=== PATIENT | female | born 1980 | race American Indian/Alaskan Native ===

== ENCOUNTER 2016-11-17 07:45 | Day surgery (SDC) | payer OTHER ==
[2016-11-17] MEDS ORDERED: DIPRIVAN 10 MG/ML IV ONE ×4 (07:54→11:36)
--- NOTE | 2016-11-17 08:38 | Anesthesia Day of Surgery ---
Anesthesia Day of Surgery - Day of Surgery Patient Examined: Yes Patient H&P Reviewed: Yes Patient is NPO: Yes
--- NOTE | 2016-11-17 08:41 | Anesthesia Consultation ---
Anesthesia Consult and Med Hx Date of service: 11/17/16 - Airway Anesthetic Teeth Evaluation: Good ROM Head & Neck: Adequate Mental/Hyoid Distance: Adequate Mallampati Class: Class II Intubation Access Assessment: Probably Good - Pulmonary Exam CTA: Yes - Cardiac Exam Cardiac Exam: RRR - Pre-Operative Health Status ASA Pre-Surgery Classification: ASA3 Proposed Anesthetic Plan: MAC - Pulmonary Hx Smoking: No Hx Respiratory Symptoms: No (Hx of isolated pulmonary embolus due to inactivity from foot surgery) Hx Sleep Apnea: Yes (not on CPAP) - Cardiovascular System Hx Hypertension: No - Central Nervous System Hx Seizures: No CVA: No - Gastrointestinal Hx Gastroesophageal Reflux Disease: Yes - Endocrine Hx Renal Disease: No Hx Liver Disease: No Hx Non-Insulin Dependent Diabetes: No - Hematic Hx Anemia: Yes Hx Sickle Cell Disease: No - Other Systems Hx Obesity: Yes (BMI 49.8) - Additional Comments Anesthesia Medical History Comments: NAC
[2016-11-17] MEDS ORDERED: NACL 0.9% 1000 ML 1,000 ML IV SCH (09:00)
[2016-11-17 10:06] VITALS: BP 107/74
--- NOTE | 2016-11-17 11:21 | Operative Report ---
SURGEON: Trino Wang MD. CHANNEL SALES DIRECTOR: Paul Weber MD PREOPERATIVE DIAGNOSIS: Dyspepsia. POSTOPERATIVE DIAGNOSIS: Dyspepsia. PROCEDURE PERFORMED: Esophagogastroduodenoscopy. INDICATIONS: The patient is a 36-year-old female that has been worked up for bariatric surgery. She has complaints of dyspepsia and after discussing risks and benefits of the procedure, she decided to consent for it. DESCRIPTION OF PROCEDURE: The patient was brought to the endoscopic suite, was placed on a stretcher in the left lateral position. MAC anesthesia was given by the anesthesia team. Timeout was called, the patient and procedure were correct. So, I proceeded to insert the endoscope into the oropharynx, down to the esophagus, stomach and duodenum and then slowly retrieved it. The mucosa was examined circumferentially. No gross pathology was visualized in the duodenum or stomach. Then, we proceeded to retroflex the scope to assess the fundal mucosa and no growth anomaly was visualized and no obvious hiatal hernia was seen. Then, we deflated the stomach and retrieved the endoscope into the esophagus and oropharynx. The patient tolerated very well the procedure and was sent to post-endoscopy recovery room. JOB# [id number] DANA/ANSHUL JOSEPH
--- NOTE | 2016-11-17 11:52 | Post Anesthesia Evaluation ---
- Post Anesthesia Evaluation Patient Participated: Yes Airway Patent: Yes Stable Respiratory Function: Yes Temp > 96.8F: Yes Pain Manageable: Yes Adequeate Hydration: Yes Anesthesia Complications: No Block Receding Appropriately: Not Applicable
== END 2016-11-17 07:46 | disposition home or self-care (01) ==
LOC: GIO 07:45
PROVIDERS: ATTEND Specialist
DX: K30 Functional dyspepsia (principal); K21.9 Gastro-esophageal reflux disease without esophagitis; D64.9 Anemia, unspecified; G47.33 Obstructive sleep apnea (adult) (pediatric); E66.9 Obesity, unspecified; Z68.42 Body mass index [BMI] 45.0-49.9, adult; Z86.711 Personal history of pulmonary embolism; Z86.73 Personal history of transient ischemic attack (TIA), and cerebral infarction without residual deficits; Z98.890 Other specified postprocedural states; Z82.49 Family history of ischemic heart disease and other diseases of the circulatory system
CPT/HCPCS: 43235; 81025; J2704; J7030

== ENCOUNTER 2016-12-01 06:19 | Inpatient (IN) | payer OTHER ==
--- NOTE | 2016-11-27 12:05 | Anesthesia Consultation ---
Anesthesia Consult and Med Hx Date of service: 11/27/16 - Airway Anesthetic Teeth Evaluation: Good ROM Head & Neck: Adequate Mental/Hyoid Distance: Adequate Mallampati Class: Class II Intubation Access Assessment: Probably Good - Pulmonary Exam CTA: Yes - Cardiac Exam Cardiac Exam: RRR - Pre-Operative Health Status ASA Pre-Surgery Classification: ASA3 Proposed Anesthetic Plan: General - Pulmonary Hx Smoking: No Hx Asthma: No Hx Respiratory Symptoms: No (Hx of PE on 2005 due to LE DVT. It was an isolated event) Hx Sleep Apnea: Yes - Cardiovascular System Hx Hypertension: No Hx Coronary Artery Disease: No Hx Heart Attack/AMI: No - Central Nervous System Hx Seizures: No CVA: No Hx Back Pain: Yes - Endocrine Hx Renal Disease: No Hx Liver Disease: No Hx Non-Insulin Dependent Diabetes: No Hx Hypothyroidism: Yes (on synthroid) - Hematic Hx Anemia: Yes Hx Sickle Cell Disease: No - Other Systems Hx Cancer: No Hx Obesity: Yes - Additional Comments Anesthesia Medical History Comments: NAC
--- NOTE | 2016-11-30 15:55 | Admit Criteria Form ---
Admission Criteria Documentation: AMBULATORY SURGERY EXCEPTION CRITERIA Ambulatory Surgery Exception Criteria ( Place 'X' for any and all applicable criteria): Surgery or procedure performed on ambulatory basis may require inpatient stay for[A] ANY ONE of the following(1)(2)(3)(4)(5)(6)(7)(8)(9): [X] I. A preoperative situation, condition, or finding that warrants inpatient stay as indicated by ANY ONE of the following: [] a) Inpatient care needed because of severity of a disease or condition rather than the surgery (eg, severe cardiac or respiratory disease, severe infection) (15) (16 ) (17) (18) [] b) Emergent procedure (eg, angioplasty for acute ischemia)(19) [] c) Complex surgical approach or situation as indicated by ANY ONE of the following(3): [] i) Open approach needed instead of usual endoscopic, transcatheter, or other less invasive procedure [] ii) Difficult approach because of previous operation [] iii) Airway monitoring required after open neck procedures(20)(21) [] iv) Large mass requiring unusually extensive dissection [] v) Additional complicating feature requiring inpatient care (eg, drain management)(22(23): [X] d) Major surgery in a pt with high anesthetic risk as indicated by ANY ONE of the following (2)(3)(5)(7)(8): [X] i) ASA risk class III or higher (severe systemic disease impairing function) [D] [] ii) Advanced age (eg, older than 85 years)(14)(24) [] iii) Symptomatic heart failure(25) [] iv) Symptomatic asthma or COPD(8)(21) [X] v) Morbid obesity with hemodynamic or respiratory problems(20)( 21)(26)(27) [] vi) Obstructive sleep apnea(20)(21) [] vii) Former premature infants who are younger than 60 weeks [] viii) High risk for severe postoperative abnormalities (eg, severe postoperative hypocalcemia after parathyroidectomy for severe hyperparathyroidism)(27)( 28) [] ix) Unstable angina(25) [] e) Drug-related risk requiring inpatient stay as indicated by ANY ONE of the following(5)(10)(14)(32)(33) [] i) Procedure requires discontinuing drugs or other therapy (eg , antiarrhythmic medication, antiseizure medication), which necessitates inpatient observation or treatment.(18)(31) [] ii) Major surgery and high risk drug use as indicated by ANY ONE of the following: [] 1) Active abuse of cocaine or similar drug [] 2) Monoamine oxidase inhibitor use [] 3) Other drug identified as posing risk [] f) Inadequate outpatient care situation as indicated by ANY ONE of the following(5)(10)(14)(32)(33) [] i) Patient lives remote from medical facility and procedure has urgent complication potential, and temporary nearby residence cannot be arranged [] ii) Patient will have postprocedure incapacitation and inadequate assistance at home, or alternative level of care cannot be arranged. [] iii) Patient will have long general anesthesia or procedure side effect resolution time, and competent person to stay with patient on first postoperative night at home or alternative level of care cannot be arranged. []iv) Other inadequate outpatient situation that cannot be handled by other means [] II. A perioperative event, condition, or finding that warrants inpatient stay as indicated by ANY ONE of the following (1)(2)(3): [] a) Inadequate physiologic recovery: cardiovascular, respiratory, or hemodynamic status not normal or near preoperative baseline(18) [] b) Hemodynamic instability [] c) Patient not alert with near normal or baseline mental status [] d) Temperature not normal or as expected and not appropriate for outpatient treatment of condition [] e) Ambulatory or appropriate activity level status not yet achieved post procedure [E](34)(35)(36) [] f) Operative site not appropriate (eg, unexpected or excessive drainage or bleeding) [] g) Postoperative effects not resolved or adequately managed (eg, significant pain or vomiting not appropriate for outpatient or next level of care)(10)(12) [] h) Complicating features requiring inpatient care as indicated by ANY ONE of the following(37): [] i) Severe complications of procedure (eg, bowel injury, airway compromise, vascular injury,severe hemorrhage) [] ii) Extensive (eg, dissection far beyond usual scope of procedure ) or prolonged (eg, 120 minutes beyond usual) surgery needed requiring inpatient postoperative care [] iii) Conversion to an open or complex procedure that requires inpatient care (eg, open vs laparoscopic cholecystectomy, abdominal vs vaginal hysterectomy)(38) [] iv) Comorbid condition or test result identified during or post procedure that requires inpatient care (7) [] v) Malignant hyperthermia(30) [] vi) Other complicating feature requiring inpatient care(22)(23) Inpatient stay may be needed until ALL of the following are present (1)(2)(3)(4) (5)(6)(10)(14)(33)(40): []a) Physiologic recovery: cardiovascular, respiratory, and hemodynamic status normal or near preoperative baseline []b) Hemodynamic stability []c) Patient alert, with near normal or baseline mental status []d) Temperature appropriate: patient afebrile or temperature appropriate for outpt treatment of condition []e) Activity level appropriate: ambulatory or appropriate activity level post procedure []f) Operative site appropriate as indicated by ALL of the following: []i) Site dry or with expected drainage []ii) Any blood noted is as expected for procedure. []g) Postoperative effects resolved or managed as indicated by ALL of the following: []i) Pain management appropriate for outpatient (or next level of) care(10) []ii) Minimal nausea and vomiting: if present, successfully treated with oral medication(12) []iii) Headache, dizziness, or drowsiness (if present) are mild. []h) Voiding status acceptable as indicated by ANY ONE of the following: []i) Voiding spontaneously []ii) No voiding but instructions given for follow-up in 6 to 8 hours []iii) Urinary catheter in place, and instructions given for follow-up []i) Complicating features requiring inpatient care manageable at a lower level of care(37) []j) Comorbid conditions manageable at a lower level of care(37) The original [facility] content created by [employer] has been revised. The portions of the content which have been revised are identified through the use of italic text or in bold, and [facility] has neither reviewed nor approved the modified material. All other unmodified content is copyright [facility]. Please see references footnoted in the original [facility] edition 2016 Admission Criteria Met: Yes
[~2016-12-01 06:19] MED LIST: LACTATED RINGERS 1,000 ML IV SCH; PEPCID PO NR; VERSED IV NR
[2016-12-01] MEDS ORDERED: ANCEF/STERILE WATER 2 GM/20 ML IV NR (07:00)
[2016-12-01] MEDS ORDERED: NACL BACTERIOSTATIC INFILTRATI ONE (07:04)
[2016-12-01] MEDS ORDERED: DILAUDID ONE (07:17)
[2016-12-01] MEDS ORDERED: DIPRIVAN 10 MG/ML IV ONE (07:17)
[2016-12-01] MEDS ORDERED: ZOFRAN IV PRN ×2 (07:22→08:51)
[2016-12-01] MEDS ORDERED: NORCO PO PRN (07:22)
[2016-12-01] MEDS ORDERED: ANCEF/STERILE WATER 2 GM/20 ML 2 GM/20 ML SYRINGE IV ONE (07:22)
[2016-12-01] MEDS ORDERED: ZEMURON IV ONE ×2 (07:24→12:39)
[2016-12-01] MEDS ORDERED: QUELICIN ONE (07:24)
[2016-12-01] MEDS ORDERED: ROBINUL ONE (07:24)
[2016-12-01] MEDS ORDERED: XYLOCAINE MPF 2% ONE (07:24)
[2016-12-01] MEDS ORDERED: BLOXIVERZ ONE (07:25)
[2016-12-01] MEDS ORDERED: PEPCID IV ONE (07:30)
[2016-12-01] MEDS ORDERED: TORADOL IV SCH (08:00)
[2016-12-01] MEDS ORDERED: TRANSDERM-SCOP TD SCH (08:00)
[2016-12-01] MEDS ORDERED: FLAGYL 500 MG/100 ML 100 ML IV NR (08:00)
[2016-12-01] MEDS ORDERED: PEPCID IV NR (08:00)
[2016-12-01] MEDS ORDERED: LOVENOX SUB-Q NR (08:00)
[2016-12-01] MEDS ORDERED: FLAGYL 500 MG/100 ML 500 MG/100 ML BAG IV NR (08:00)
--- NOTE | 2016-12-01 08:03 | Anesthesia Day of Surgery ---
Anesthesia Day of Surgery - Day of Surgery Patient Examined: Yes Patient H&P Reviewed: Yes Patient is NPO: Yes
[2016-12-01] MEDS ORDERED: DECADRON ONE (08:12)
[2016-12-01] MEDS ORDERED: ZOFRAN ONE (08:48)
[2016-12-01] MEDS ORDERED: MARCAINE-EPI 0.5%-1:200,000 INFILTRATI ONE (08:56)
[2016-12-01] MEDS ORDERED: XYLOCAINE 1% 20 mL INFILTRATI ONE (08:56)
[2016-12-01] MEDS ORDERED: NACL 0.9% IR ONE (08:57)
[2016-12-01] MEDS: DILAUDID IV PRN ×2 (10:50→11:20)
--- NOTE | 2016-12-01 11:03 | Post Anesthesia Evaluation ---
- Post Anesthesia Evaluation Patient Participated: Yes Airway Patent: Yes Stable Respiratory Function: Yes Nausea/Vomiting: No Temp > 96.8F: Yes Pain Manageable: Yes Adequeate Hydration: Yes Anesthesia Complications: No Block Receding Appropriately: Not Applicable Patient on Ventilator: No
[2016-12-01] MEDS ORDERED: NACL 0.9% 1000 ML 1,000 ML ONE (12:41)
[2016-12-01] MEDS: LOVENOX SUB-Q SCH (21:30)
[2016-12-01] MEDS: LACTATED RINGERS 1,000 ML IV SCH (21:31)
[2016-12-02] MEDS: MORPHINE IV PRN ×2 (03:31→08:15)
[2016-12-02] MEDS: LACTATED RINGERS 1,000 ML IV SCH (03:32)
--- NOTE | 2016-12-02 03:51 | Operative Report ---
ATTENDING SURGEON: Dr. Wang. ASSISTANTS: Dr. Weber and Dr. Corona. PREOPERATIVE DIAGNOSIS: Morbid obesity. POSTOPERATIVE DIAGNOSES: Morbid obesity and hiatal hernia. PROCEDURE PERFORMED: Laparoscopic sleeve gastrectomy and hiatal hernia repair. INDICATIONS FOR THE PROCEDURE: The patient is a 36-year-old female with longstanding morbid obesity and dyspepsia. After extensive preoperative workup, she is headed to consent for a laparoscopic gastric sleeve and hiatal hernia repair. DESCRIPTION OF PROCEDURE: The patient was brought to the operating room and placed on the operating table in supine position. General endotracheal tube anesthesia was given by the anesthesia team. The patient was prepped and draped under standard fashion. Timeout was called, the patient, and procedure were correct, so we proceeded to access the abdominal cavity through the umbilicus with a Veress needle. We insufflated up to 18 mmHg. Then, we proceeded to extend that incision and inserted at the 15 mm trocar. Then, using a 45-degree, 10-mm camera, we placed the working trocars. One 5mm trocar was place on the right side of the patient and 2 trocars were placed on the left side of the patient, 5 mm each, and then, a subxiphoid 5-mm trocar. All of them were placed under direct visualization with free infiltration of local anesthetic. Then we proceeded to insert the liver retractor through the 5 mm subxiphoid trocar site and the patient was placed in reverse Trendelenburg. Then, we proceed to use monopolar dissector to dissect the hiatus identifying a hiatal hernia. It was reduced into the intra-abdominal cavity and then an standard anterior cruroplasty was performed. After doing these, we proceeded to dissect the greater omentum from the greater curvature of the stomach approximately 6 cm from the pylorus towards the antrum extending all the way out to the short gastric vessels into the left bonifacio of the diaphragm. When this was done, a 36 bougie was passed down into the stomach. Using an Endo-KAN, we proceeded to sequentially staple creating the sleeve using first a load of a green load, then a dawn load and then blue loads. After doing these, we controlled hemostasis on the staple line and we used Tisseel to aid in this matter. Then we removed the bougie, removed the liver retractor and removed stomach resected portion through the 15-mm trocar site. After doing this, we reduced pneumoperitoneum and remove all the trocars. We closed the umbilicus incision in two layers using #1 PDS and subcuticular Monocryl closure for skin. All of the other trocar site incisions were closed in 1 layer with a #4-0 Monocryl. The patient was extubated, and sent to recovery room. She tolerated very well the procedure. Instrument and lap count was correct x 2. JOB# [id number] DANA/ANSHUL JOSEPH
[2016-12-02 06:53] LABS: Magnesium 2.1 mg/dL (1.7-2.3); Phosphorous 2.6 mg/dL (2.5-4.5)
[2016-12-02] MEDS: LOVENOX SUB-Q SCH (09:00)
[2016-12-02 09:45] VITALS: BP 129/87
[2016-12-02 10:44] LABS: Basophils % (Auto) 0.7 % (0.0-1.8); Eosinophils % (Auto) 0.1 % (0.0-4.3); Hematocrit 33.3 % (30.3-42.9); Hemoglobin 10.4 gm/dl (10.1-14.3); Mean Corpuscular HGB Conc 31 % (30-34); Mean Corpuscular Volume 79 fl (79-97); Platelet Count 322 K/mm3 (140-440); Red Blood Count 4.21 M/mm3 (3.65-5.03); Red Cell Distribution Width 16.8 % (13.2-15.2)
[2016-12-02 10:45] LABS: Mean Corpuscular Hemoglobin 25 pg (28-32)
[2016-12-02 11:05] LABS: Alanine Aminotransferase 22 units/L (7-56); Albumin 3.6 g/dL (3.9-5); Albumin/Globulin Ratio 0.9 %; Alkaline Phosphatase 71 units/L (35-129); Anion Gap 15 mmol/L; BUN/Creatinine Ratio 8.57; Bilirubin,Total 0.3 mg/dL (0.1-1.2); Blood Urea Nitrogen 6 mg/dL (7-17); Calcium 8.5 mg/dL (8.4-10.2); Carbon Dioxide 24 mmol/L (22-30); Glucose 92 mg/dL (65-100); Potassium 3.7 mmol/L (3.6-5.0); Sodium 139 mmol/L (137-145); Total Protein 7.8 g/dL (6.3-8.2)
--- NOTE | 2016-12-02 13:57 | Discharge Summary ---
Providers - Providers Date of Admission: 12/01/16 06:19 Date of discharge: 12/02/16 Attending physician: ANICETO ROBERTSON Primary care physician: [facility] Hospitalization Reason for admission: obseervation after surgery Condition: Stable Hospital course: admitted after surgery. Doing well tolerating bariatric stage 1 ambulating ready for discharge Disposition: DISCHARGED TO HOME OR SELFCARE Core Measure Documentation - Palliative Care Palliative Care/ Comfort Measures: Not Applicable - Core Measures Any of the following diagnoses?: none Exam - Constitutional Vitals: Temp Pulse Resp BP Pulse Ox 99 F 80 17 129/87 97 12/02/16 08:00 12/02/16 08:00 12/02/16 08:15 12/02/16 08:00 12/02/16 08:55 General appearance: Present: no acute distress, well-nourished - Neck Neck: Present: supple, normal ROM - Respiratory Respiratory effort: normal Respiratory: bilateral: CTA - Abdominal General gastrointestinal: Present: soft, non-tender (appropriate wound TTP), non -distended, normal bowel sounds Female genitourinary: Present: normal - Neurologic Neurologic: CNII-XII intact, moves all extremities Plan Activity: other (no heavy lifting) Diet: other (bariatric stage 1) Wound: open to air Special Instructions: no heavy lifting Follow up with: PRIMARY CARE, [Primary Care Provider] - 7 Days
== END 2016-12-02 15:15 | disposition home or self-care (01) | DRG 327 ==
LOC: 3A 06:19 → 2B-SURG 10:53
PROVIDERS: ADMIT Specialist; ATTEND Specialist
PROC: 0DB64Z3 Excision of Stomach, Percutaneous Endoscopic Approach, Vertical (ICD-10-PCS; principal; 2016-12-01)
PROC: 0BQS4ZZ (ICD-10-PCS; 2016-12-01)
PROC: 0BQR4ZZ (ICD-10-PCS; 2016-12-01)
DX: K44.9 Diaphragmatic hernia without obstruction or gangrene (principal); Z68.43 Body mass index [BMI] 50.0-59.9, adult; E66.01 Morbid (severe) obesity due to excess calories; G47.30 Sleep apnea, unspecified; E03.9 Hypothyroidism, unspecified; D64.9 Anemia, unspecified; Z86.711 Personal history of pulmonary embolism; Z86.718 Personal history of other venous thrombosis and embolism; Z82.49 Family history of ischemic heart disease and other diseases of the circulatory system; Z83.79 Family history of other diseases of the digestive system; Z91.013 Allergy to seafood
CPT/HCPCS: 36415; 80053; 81025; 83735; 84100; 85025; 88307; 88342; 94660; C9250; J0330; J0690; J1100; J1170; J1650; J2250; J2270; J2405; J2704; J2710; J7030; J7120